=== PATIENT | male | born 1980 ===

== ENCOUNTER 2017-09-27 20:56 | Emergency (ER) | payer OTHER ==
[~2017-09-27] VITALS: Ht 167.6 cm; Wt 76.2 kg
[2017-09-27 21:01] VITALS: TEMP 36.8; Ht 167.6 cm; Wt 76.2 kg
[2017-09-27] MEDS ORDERED: ONDANSETRON 8 MG/54 ML D5W IV STA (21:09)
[2017-09-27] MEDS ORDERED: SODIUM CHLORIDE 0.9% 1000ML 1,000 ML IV STA (21:09)
[2017-09-27 21:40] VITALS: O2SAT 96
[2017-09-27 21:59] LABS: BUN/CREATININE RATIO 30.9 (10-20); CALCIUM 8.8 mg/dl (8.5-10.1); CREATININE 0.7 mg/dl (0.60-1.40)
[2017-09-27 22:00] LABS: BASO % 0.1 %; BASO ABS # 0.01 K/uL (0-0.2); COMPLETE YES; EOS % 1.8 %; HEMATOCRIT 40.5 % (42-52); IG% 0.2 %; LYMPH % 32.4 %; LYMPH ABS # 2.64 K/uL (1.2-3.4); MEAN CELL VOLUME 81.7 fL (80-100); MEAN CORPUSCULAR HEMOGLOBIN 27.8 pg (25-34); MEAN CORPUSCULAR HGB CONC 34.1 g/dl (32-36); MEAN PLATELET VOLUME 10.8 fL (7.4-10.4); NEUT % 58.5 %; PLATELET COUNT 305 K/uL (130-400); RED BLOOD COUNT 4.96 M/uL (4.7-6.1); WHITE BLOOD COUNT 8.15 K/uL (4.8-10.8)
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
[2017-09-27 22:20] LABS: PARTIAL THROMBOPLASTIN RATIO 1.1; PROTHROMBIN TIME (PATIENT) 10.7 SECONDS (9.0-12.0)
[2017-09-27] MEDS ORDERED: TRAM-10 PO (22:28)
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
[2017-09-27] MEDS ORDERED: NORCO 5/325MG HOME PACK PO ONE (22:45)
[2017-09-27] MEDS ORDERED: DIABETIC PILL PO (22:48)
[2017-09-27] MEDS ORDERED: IBUP-1050 PO (22:48)
[2017-09-27 23:03] VITALS: BP 140/93; PULSE 84; O2SAT 98
== END 2017-09-27 23:06 | disposition home or self-care (01) ==
LOC: C.EDB 20:59 → C.EDA 23:06
DX: R07.81 Pleurodynia (principal); V03.10XA Pedestrian on foot injured in collision with car, pick-up truck or van in traffic accident, initial encounter; Y92.410 Unspecified street and highway as the place of occurrence of the external cause; E11.9 Type 2 diabetes mellitus without complications; F17.210 Nicotine dependence, cigarettes, uncomplicated; Z79.899 Other long term (current) drug therapy